=== PATIENT | female | born 1955 | race Caucasian/White ===

== ENCOUNTER 2017-06-30 08:43 | Day surgery (SDC) | payer BC ==
[2017-06-30] MEDS ORDERED: MIDAZOLAM HCL 2MG/2ML VIAL IV ONE (08:44)
[2017-06-30] MEDS ORDERED: LIDOCAINE 2% MDV (20MG/ML) 20ML VIAL IV ONE (08:44)
[2017-06-30] MEDS ORDERED: PROPOFOL 10 MG/ML VIAL IV ONE (08:44)
--- NOTE | 2017-07-01 10:30 | Operative Note ---
DATE OF SURGERY: 06/30/2017 OPERATION: COLONOSCOPY to the cecum. INDICATION: Colorectal cancer screening. Her last examination was 14 years ago. She denies family history of colon cancer or complaints related to the colon. ANESTHESIA: Intravenous sedation was administered by the department of anesthesiology and included Diprivan titrated to effect. PROCEDURE: Following informed consent from this alert individual including a discussion of the risks and benefits of the procedure and an opportunity for the patient to ask questions, the patient was in the left lateral decubitus position. A digital rectal examination was performed. No abnormalities were noted. Following this, the Olympus HXC135 video colonoscope was inserted into the rectum without resistance. The rectal mucosa had a normal appearance with normal folds and distensibility. The colonoscope was advanced up through the colon to the level of the cecum without much difficulty. Throughout the bowel the mucosa appeared normal, the folds were normal, and the bowel was fairly well distensible. The cecum was defined by noting the appendiceal orifice and ileocecal valve. From the base of the cecum, the colonoscope was then withdrawn. No abnormalities were noted throughout. Retroflexion within the rectum was endoscopically unremarkable. The endoscope was straightened and withdrawn. The patient tolerated the procedure well and was returned to the recovery area in stable condition. IMPRESSION: Unremarkable colonoscopy to the cecum. RECOMMENDATIONS: The patient was advised to have recheck colonoscopy in 10 years' time or sooner should problems arise. Followup will otherwise be with Dr. Hayes. As always, thank you for allowing me to participate in the care of your patient. CC: FEMI HAYES MD, FACP [facility]
== END 2017-06-30 11:02 | disposition home or self-care (01) ==
LOC: HOP 08:43
PROVIDERS: ATTEND Internal Medicine Gastroenterology
DX: Z12.11 Encounter for screening for malignant neoplasm of colon (principal); J44.9 Chronic obstructive pulmonary disease, unspecified; M81.0 Age-related osteoporosis without current pathological fracture; F17.210 Nicotine dependence, cigarettes, uncomplicated
CPT/HCPCS: 00812; G0121

== ENCOUNTER 2018-08-11 13:17 | Emergency (ER) | payer BC, MEDICARE ==
--- NOTE | 2018-08-11 13:33 | Emergency Department Record ---
History of Present Illness - General Chief Complaint: Abdominal Pain Stated Complaint: ABDOMINAL PAIN Time Seen by Provider: 08/11/18 13:23 Source: Patient Mode of Arrival: Ambulatory Limitations: No limitations - History of Present Illness Initial Comments: The patient is here due to lower AP for the last 24 hours. The pain is a sharp aching pain that is worse with movement and walking. She denies any nausea, vomiting, diarrhea, fever, or dysuria with the pain. The patient did go to the for the pain and did receive a shot of Toradol which has helped the pain tremendously. Presently the pain has resolved. The patient states her only abdominal surgeries were a bladder sling and SHAMAR. MD Complaint: Abdominal pain Onset/Timin -: Days(s) Location: Suprapubic Radiation: None Migration to: No migration Severity: Moderate Severity scale (1-10): 7 Quality: Aching Consistency: Constant Improves With: Nothing Worsens With: Nothing Associated Symptoms: Diarrhea - Related Data Patient : No Home Medications Medication Instructions Recorded Confirmed Last Taken Alendronate Sodium [Fosamax] 70 mg PO DAILY 08/11/18 08/11/18 Unknown Ergocalciferol (Vitamin D2) 50,000 unit PO WEEKLY 08/11/18 08/11/18 Unknown [Vitamin D2] Previous Rx's Medication Instructions Recorded Ciprofloxacin HCl [Cipro] 500 mg PO Q12HR #14 tablet 08/11/18 Metronidazole [Flagyl] 500 mg PO Q8H #21 tablet 08/11/18 Allergies Allergy/AdvReac Type Severity Reaction Status Date / Time amoxicillin Allergy Unknown BLURRED Verified 08/11/18 13:24 VISION Carbapenems Allergy Unknown HIVES Verified 08/11/18 13:24 cephalexin Allergy Unknown HIVES Verified 08/11/18 13:24 Cephalosporins Allergy Unknown HIVES Verified 08/11/18 13:24 Penicillins Allergy Unknown PT UNSURE Verified 08/11/18 13:24 OF REACTION acetaminophen [From Percocet] Allergy HIVES Verified 08/11/18 13:24 hydrocodone bitartrate Allergy HYPERSENSIT Verified 08/11/18 13:24 [From Vicodin] IVITY oxycodone HCl [From Percocet] Allergy HIVES Verified 08/11/18 13:24 tramadol Allergy HIVES Verified 08/11/18 13:24 Travel Screening - Travel/Exposure Within Last 30 Days Have you traveled within the last 30 days?: No Review of Systems Constitutional: Denies: Chills, Fever Eyes: Denies: Eye discharge ENT: Denies: Congestion Respiratory: Denies: Cough, Dyspnea Cardiovascular: Denies: Arrhythmia, Chest pain Endocrine: Denies: Fatigue Gastrointestinal: Reports: Abdominal pain. Denies: Diarrhea, Nausea, Vomiting Genitourinary: Denies: Dysuria Musculoskeletal: Denies: Arthralgia, Back pain Skin: Denies: Bruising Past Medical History - SOCIAL HISTORY Smoking Status: Light tobacco smoker (<10/day) Alcohol Use: Rare Drug Use: None - RESPIRATORY Hx Respiratory Disorders: Yes Hx COPD: Yes - CARDIOVASCULAR Hx Cardio Disorders: Yes Hx Deep Vein Thrombosis: Yes (1978) - NEURO Hx Neuro Disorders: No - GI Hx GI Disorders: Yes Hx of Polyps: Yes - Hx Genitourinary Disorders: Yes Hx Bladder Problem: Yes (bladder suspension 1989) - ENDOCRINE Hx Endocrine Disorders: No - MUSCULOSKELETAL Hx Musculoskeletal Disorders: Yes Hx Arthritis: Yes (Hands) - PSYCH Hx Psych Problems: No - HEMATOLOGY/ONCOLOGY Hx Hematology/Oncology Disorders: Yes Hx Blood Transfusions: Yes (after childbirth 1978) Family Medical History Any Significant Family History?: Yes Hx Heart Disease: Mother, Brother/Sister Physical Exam - General General Appearance: Alert, Oriented x3, Cooperative, No acute distress - Head Head exam: Atraumatic, Normocephalic, Normal inspection - Eye Eye exam: Normal appearance, PERRL, EOMI - Neck Neck exam: Normal inspection, Full ROM. negative: Tenderness - Respiratory Respiratory exam: Normal lung sounds bilaterally. negative: Respiratory distress - Cardiovascular Cardiovascular Exam: Regular rate, Normal rhythm, Normal heart sounds - GI/Abdominal GI/Abdominal exam: Soft, Normal bowel sounds, Tenderness (There is mild suprapubic tenderness L>R with no guarding or rebound.). negative: Distended, Guarding, Rebound, Rigid - Extremities Extremities exam: Normal inspection, Full ROM, Normal capillary refill. negative: Tenderness - Back Back exam: Reports: Normal inspection - Neurological Neurological exam: Alert, Normal gait. negative: Abnormal gait, Motor sensory deficit - Psychiatric Psychiatric exam: negative: Anxious Course Vital Signs 08/11/18 13:21 Temperature 98.1 F Pulse Rate 83 Respiratory 18 Rate Blood Pressure 105/70 Pulse Ox 98 - Reevaluation(s) Reevaluation #1: The patient is doing well at this time. She was just sleeping in the room and after waking denies any pain or discomfort. I did discuss the CT results and the need for F/U later this week with her PCP. She also understands the need to return to the ER for any worsening pain, fever, or vomiting. 08/11/18 14:28 Medical Decision Making - Data Complexity MDM Data: Labs Ordered and/or Reviewed, X-Ray Ordered and/or Reviewed - Radiology Data Radiology results: Report reviewed (CT: Mild sigmoid diverticulitis with no abscess, phlegmon or free air.) Disposition Disposition: Discharge Clinical Impression: Diverticulitis large intestine Qualifiers: Diverticulitis bleeding: without bleeding Diverticulitis complication: unspecified complication status Qualified Code(s): K57.32 - Diverticulitis of large intestine without perforation or abscess without bleeding Disposition: Home, Self-Care Condition: (2) Stable Instructions: Diverticulitis (ED) Additional Instructions: Please use Tylenol or Advil for pain and take the Cipro and Flagyl as directed. Please see your family doctor for recheck later this week and return to the ER for any worsening pain, fever, or vomiting. Prescriptions: Ciprofloxacin HCl [Cipro] 500 mg PO Q12HR #14 tablet Metronidazole [Flagyl] 500 mg PO Q8H #21 tablet Forms: Patient Portal Access Time of Disposition: 14:32 Quality - Quality Measures Quality Measures: N/A - Blood Pressure Screening View Details: Yes Does Patient Have Any of the Following: No Blood Pressure Classification: Normal BP Reading Systolic Measurement: 105 Diastolic Measurement: 70 Screening for High Blood Pressure: < Normal BP, F/U Not Required > [G8783]
[2018-08-11 13:37] LABS: URINE APPEARANCE CLEAR; URINE BILIRUBIN NEGATIVE (NEGATIVE); URINE BLOOD MODERATE (NEGATIVE); URINE COLOR YELLOW; URINE GLUCOSE (UA) NEGATIVE (NEGATIVE); URINE KETONE TRACE (NEGATIVE); URINE LEUKOCYTE ESTERASE NEGATIVE (NEGATIVE); URINE NITRITE NEGATIVE (NEGATIVE); URINE PROTEIN NEGATIVE (NEGATIVE); URINE UROBILINOGEN 0.2 E.U./dL (0.20 - 1.00)
[2018-08-11 13:43] LABS: URINE EPITHELIAL CELLS 0 - 2 (FEW); URINE WBC NONE SEEN (0-2/hpf)
[2018-08-11] MEDS: METRONIDAZOLE 250 MG TABLET PO ONE (14:32)
[2018-08-11] MEDS: CIPROFLOXACIN HCL 500 MG TABLET PO ONE (14:32)
--- NOTE | 2018-08-12 19:26 | CT SCAN REPORT ---
EXAM: CT SCAN ABDOMEN/PELVIS WO CONTRAST HISTORY: PELVIC PRESSURE AND ABDOMINAL PAIN. URINARY URGENCY. MICROHEMATURIA. TECHNIQUE: Standard CT imaging of the abdomen and pelvis was performed without contrast. COMPARISON: None. FINDINGS: A calcified granuloma is present at the left lung base. A calcified mediastinal lymph node is also present. The liver is mildly enlarged. A Reidel's lobe is present. There are no focal hepatic abnormalities. The gallbladder, biliary tree, pancreas, and adrenal glands appear normal. Calcified granulomas are present within the spleen. The spleen is normal in size. A 1.7 cm cyst is present within the lateral cortex of the left kidney. The kidneys and ureters are otherwise unremarkable. There is no urinary tract calculus or obstructive uropathy. Atherosclerotic calcifications are present within the aorta. There is no aneurysm. There is no retroperitoneal lymphadenopathy. There is focal inflammation involving the sigmoid colon within the deep left hemipelvis. An inflamed diverticulum is present with mild adjacent fat stranding. The appearance is consistent with acute diverticulitis. There is no visible discrete abscess or pneumoperitoneum. The remaining large and small bowel loops appear normal. There is no ascites. The urinary bladder is unremarkable. The uterus is surgically absent. The abdominal wall appears intact. Degenerative changes are present within the spine. There is very slight anterolisthesis of L4 on L5 secondary to bilateral facet arthropathy. IMPRESSION: 1. MILD ACUTE SIGMOID DIVERTICULITIS WITH NO EVIDENCE FOR ABSCESS OR PNEUMOPERITONEUM. 2. A 1.7 CM LEFT RENAL CYST. THERE IS NO ACUTE URINARY TRACT PATHOLOGY OR CALCULUS. 3. MILD HEPATOMEGALY. 4. OLD GRANULOMATOUS DISEASE. 5. NOT MENTIONED ABOVE, A TINY RIGHT PERIUMBILICAL FAT-CONTAINING HERNIA IS PRESENT. JOB NUMBER: [id number] [facility]
== END 2018-08-11 14:49 | disposition home or self-care (01) ==
LOC: ER 13:17
DX: K57.32 Diverticulitis of large intestine without perforation or abscess without bleeding (principal); F17.210 Nicotine dependence, cigarettes, uncomplicated
CPT/HCPCS: 74176; 80053; 81001; 83690; 85025; 99284